=== PATIENT | male | born 1960 | race Caucasian/White ===

== ENCOUNTER 2020-10-24 15:08 | Emergency (ER) | payer OTHER ==
[~2020-10-24 15:08] MED LIST: BACTRIM DS TAB1 EACH PO; CLOPIDOGREL75 MG PO; ECOTRIN81 MG PO; GABAPENTIN400 MG PO; GLUCOPHAGE1000 MG PO; HUMALOG 10100 UNITS/ SC; JARDIANCE25 MG PO; KEFLEX CAP 500500 MG PO; LORTAB 5-325 M1 EACH PO; LORTAB 7.5-3251 EACH PO; LYRICA150 MG PO; NOVOLOG MI100 UNIT/1 SQ; SINEQUAN CAP 2525 MG PO; SYNTHROID75 MCG PO; ZANTAC150 MG PO; ZOCOR40 MG PO; ZOFRAN ODT 4 MG4 MG PO
[2020-10-24 17:54] LABS: HEMOGLOBIN 12.5 gm/dl (14.0-17.5); RED BLOOD COUNT 4.19 M/UL (4.20-5.50); WHITE BLOOD COUNT 9.4 K/UL (4.5-11.0)
== END 2020-10-24 21:34 | disposition home or self-care (01) ==
LOC: ER1 15:08
PROVIDERS: Nurse Practitioner
DX: E11.9 Type 2 diabetes mellitus without complications (principal); I87.8 Other specified disorders of veins; I25.2 Old myocardial infarction; I51.9 Heart disease, unspecified; F17.290 Nicotine dependence, other tobacco product, uncomplicated; Z89.612 Acquired absence of left leg above knee; Z95.1 Presence of aortocoronary bypass graft
CPT/HCPCS: 36415; 80053; 81001; 82009; 82803; 82962; 83605; 85025; 87086; 96374; 99283